=== PATIENT | female | born 1955 | race Caucasian/White ===

== ENCOUNTER → 2023-07-18 06:32 | Day surgery (SDC) | payer MEDICARE, SELFPAY | LOC: GI 06:32 | PROVIDERS: ATTENDING PHYSICIAN Internal Medicine Gastroenterology | DX: K31.A0 Gastric intestinal metaplasia, unspecified (principal); Z09 Encounter for follow-up examination after completed treatment for conditions other than malignant neoplasm | CPT/HCPCS: 43239; 88305; 88342 ==

== ENCOUNTER → 2023-11-20 08:01 | Outpatient (REF) | payer MEDICARE, SELFPAY | LOC: RAD 08:01 | PROVIDERS: ATTENDING PHYSICIAN Obstetrics & Gynecology Gynecology; FAMILY PHYSICIAN Physician Assistant | DX: M89.9 Disorder of bone, unspecified (principal); M85.88 Other specified disorders of bone density and structure, other site; Z12.31 Encounter for screening mammogram for malignant neoplasm of breast | CPT/HCPCS: 77063; 77067; 77080 ==

== ENCOUNTER → 2024-01-02 10:31 | Outpatient (REF) | payer MEDICARE, SELFPAY | LOC: RCS 10:31 | PROVIDERS: ATTENDING PHYSICIAN Physician Assistant | DX: R07.9 Chest pain, unspecified (principal); R73.01 Impaired fasting glucose; Z82.49 Family history of ischemic heart disease and other diseases of the circulatory system; Z82.3 Family history of stroke | CPT/HCPCS: 93017; 75571 ==

== ENCOUNTER → 2024-07-08 07:02 | Outpatient (REF) | payer MEDICARE, SELFPAY | LOC: MRI 3T 07:02 | PROVIDERS: ATTENDING PHYSICIAN Physician Assistant; FAMILY PHYSICIAN Physician Assistant | DX: M54.14 Radiculopathy, thoracic region (principal); R07.89 Other chest pain | CPT/HCPCS: 72146 ==

== ENCOUNTER → 2024-11-20 14:40 | Outpatient (REF) | payer MEDICARE, SELFPAY | LOC: HWRAD 14:40 | PROVIDERS: ATTENDING PHYSICIAN Internal Medicine Gastroenterology; FAMILY PHYSICIAN Physician Assistant | DX: R10.11 Right upper quadrant pain (principal) | CPT/HCPCS: 76700 ==

== ENCOUNTER → 2024-11-26 08:59 | Outpatient (REF) | payer MEDICARE, SELFPAY | LOC: WDC 08:59 | PROVIDERS: ATTENDING PHYSICIAN Obstetrics & Gynecology Gynecology | DX: Z12.31 Encounter for screening mammogram for malignant neoplasm of breast (principal) | CPT/HCPCS: 77063; 77067 ==

== ENCOUNTER 2025-01-28 18:41 | Emergency (ER) | payer MEDICARE, SELFPAY ==
[2025-01-28 18:44] VITALS: BP 162/78
[2025-01-28 19:11] LABS: Hematocrit 39.6 % (37.0-47.0); Hemoglobin 13.1 g/dL (12.0-16.0); Mean Corp Hgb Conc. 33.1 g/dL (33.0-37.0); Mean Corpuscular Volume 98.5 fL (81.0-99.0); Nucleated Red Blood Cells % 0 %; Platelet Count 235 10^3/uL (130-400); Red Cell Dist. Width 12.6 % (11.5-14.5)
[2025-01-28 19:23] LABS: INR 1.01; PT 13.6 Sec (11.4-14.6)
[2025-01-28 19:37] LABS: ALT (SGPT) 18 U/L (0-35); AST (SGOT) 21 U/L (14-36); Albumin 4.4 g/dl (3.5-5.0); Alkaline Phosphatase 58 U/L (38-126); Blood Urea Nitrogen 11 mg/dl (7-17); Calcium 9.4 mg/dl (8.4-10.2); Carbon Dioxide 31 mmol/L (22-30); Chloride 100 mmol/L (98-107); Glucose 95 mg/dl (70-99); Potassium 4.2 mmol/L (3.5-5.1); Sodium 136 mmol/L (135-145); Total Protein 6.8 g/dl (6.3-8.2); eGFR > 60.00
[2025-01-28 19:47] LABS: Troponin I < 0.012 ng/ml
[2025-01-28 22:14] VITALS: BP 138/68
[2025-01-28 22:15] VITALS: BMI 18.8
[2025-01-28 23:00] VITALS: BP 112/59
[2025-01-29] VITALS: BP 105/57
--- NOTE | 2025-01-29 01:02 | ED.GENMED ---
History of Present Illness
General
Chief Complaint: Chest Pain
Source: patient
Time Seen by Provider: 01/28/25 23:30
Nursing documentation reviewed up to this point in time: agreed with
History of Present Illness
History of Present Illness:
Note:
CHIEF COMPLAINT(S)
Chest discomfort and pain radiating to the back.
HISTORY OF PRESENT ILLNESS
The patient is a 69-year-old female with a history of recent travel from [facility] a week ago, presenting with complaints of chest discomfort. She describes the sensation as feeling 'like somethings stuck in my chest' and reports having sharp pains in
various areas of her chest, at times radiating to her back. These symptoms have persisted for a week without improvement. She reports excessive burping, particularly after consuming even small amounts such as a sip of water in the morning, but
denies that her pain is triggered by eating. The patient mentions using [id number]-isoqezu medications like Gas-X and antacids, but these have not alleviated her symptoms.
The patients GI provider advised a temporary increase in omeprazole and suggested considering the possibility of a pulmonary embolism (PE) or gallbladder issues and recommended seeking further evaluation including an electrocardiogram (EKG), which
the patient had this afternoon. There is a concern about the recent travel and a potential long drive ahead, raising concerns about a possible PE.
The patient denies associated symptoms such as calf tenderness, diarrhea, constipation, fever, chills, vomiting, and significant heart palpitations. She has experienced some headaches, which she attributes to stress. She reports no alcohol
consumption or intake of spicy foods. The family history includes heart issues in her grandparents, a brother with a heart attack at 47, and pancreatic cancer in her father.
FAMILY HISTORY
Family history of heart disease, with both grandparents affected. The patients brother had a heart attack at age 47. Her father from pancreatic cancer at age 50.
REVIEW OF SYSTEMS
- Gastrointestinal: Excessive burping, sensation of something stuck in the chest. No constipation or diarrhea.
- Cardiovascular: Sharp pains in the chest radiating to the back. No significant palpitations reported.
- Neurological: Headaches, potentially related to stress.
- General: No fever or chills.
PHYSICAL EXAM
General: Alert, no acute distress.
Skin: Warm, dry.
Head: Normocephalic, atraumatic.
Neck: Supple, trachea midline.
Eyes, Ears, Nose, Mouth, and Throat: Oral mucosa moist.
Cardiovascular: Normal peripheral perfusion, no edema.
Respiratory: Non-labored respirations.
Gastrointestinal: Abdomen nondistended.
Back: Normal range of motion, normal alignment.
Musculoskeletal: Normal range of motion, normal strength.
Neurological: Alert and oriented to person, place, time, and situation, no focal neurological deficit observed.
Psychiatric: Cooperative, appropriate mood and affect.
PLAN
- Consideration of testing for pulmonary embolism due to recent travel history and upcoming long drive.
- Further evaluation to rule out gallbladder pathology.
- Continued monitoring and assessment if symptoms do not improve.
DIFFERENTIAL DIAGNOSIS
The Differential Diagnosis includes, in no particular order and is not limited to:
1. Gastroesophageal reflux disease (GERD)
2. Gallbladder disease (e.g., cholecystitis)
3. Pulmonary embolism
4. Myocardial ischemia
5. Peptic ulcer disease
6. Esophageal spasm
7. Costochondritis
8. Anxiety-related disorders
9. Aortic dissection
10. Musculoskeletal pain
Disposition:
SUMMARY OF ENCOUNTER
The patient, a 69-year-old female, presented to the emergency department with chest discomfort and pain radiating to the back. She had recently traveled from [facility] and had concerns about a possible pulmonary embolism (PE) due to her travel history
and symptoms. A CTA (CT angiography) study was conducted to rule out PE, which returned negative. Laboratory workup included a normal lipase, and other labs were also essentially normal, with normal troponin levels tested twice. Given the normal
findings and absence of an acute life-threatening condition, the decision was made to discharge the patient.
DISPOSITION
Discharge
PLAN
The patient was advised to follow up with gastroenterology due to ongoing symptoms and possibly related GI issues.
INDEPENDENT REVIEW OF LABS AND INTERPRETATION OF TESTS
- My independent review of lipase is normal.
- My independent review of troponin is negative (x2).
INDEPENDENT REVIEW OF RADIOLOGY INTERPRETATION
- My independent CT angiography interpretation is negative for pulmonary embolism.
FOLLOW-UP INSTRUCTIONS
The patient is advised to follow up with gastroenterology.
MEDICATION RECONCILIATION
- Omeprazole, increased dose as previously advised by her GI provider.
MEDICAL DECISION MAKING
1. Number and Complexity of Problems Addressed: Chronic conditions affecting care include recent travel, chest discomfort, and possible GERD. Differential diagnosis considered includes gastroesophageal reflux disease (GERD), gallbladder disease,
pulmonary embolism, myocardial ischemia, peptic ulcer disease, esophageal spasm, costochondritis, anxiety-related disorders, aortic dissection, and musculoskeletal pain.
2. Data:
- Category 1: CT angiography and lab work were reviewed. Lipase and troponin levels were interpreted.
- Category 2: None indicated.
- Category 3: None indicated.
3. Risk:
- Consideration of Admission/Observation: Escalation of care including admission/observation was considered given the complexity and risk of the patients presenting complaint and underlying comorbidities. However, ultimately I feel the patient is
safe for outpatient management with close follow-up. Reasoning: Work-up reassuring, does not reveal any acute life/organ-threatening processes, patients symptoms well controlled upon reevaluation, reexamination is reassuring, vitals are stable,
patient agreeable with discharge, and reliable for follow-up.
DIAGNOSIS
1. Gastroesophageal reflux disease (GERD) - K21.9
2. Chest pain, unspecified - R07.9
Past History
Past History
ED Past Medical History: Hypercholesterolemia
ED Past Surgical History: Orthopedic
Phy Exam
Physical Exam
Physical Exam:
.
Scores
Heart Score for Chest Pain Patients
STEMI patient?: No
History: Slightly or Non-Suspicious
ECG: Normal
Age: >/= 65 years
Risk Factors: No Risk Factors
Troponin: </= Normal Limit
Heart Score for Chest Pain Patients: 2
Heart Score Risk: 2.5% MACE over next 6 weeks
Course
Orders/Labs/Results
Orders:
Orders
01/28/25 18:47
Electrocardiogram (*1) Urgent
Reason for Study: Chest Pain
EKG- Treatment ONCE
01/28/25 19:01
Complete Blood Count/With Diff Urgent
Comprehensive Metabolic Panel Urgent
Lipase Urgent
Comment: ADD ON
Prothrombin Time Urgent
Troponin I Urgent
01/29/25 00:42
CT Chest PE Study Urgent
Comment:
Reason For Exam: cp after long flight
01/29/25 00:43
Electrocardiogram (*1) Urgent
Reason for Study: Chest Pain
EKG- Treatment ONCE
01/29/25 00:45
EKG- Treatment ONCE
01/29/25 00:53
TSH Reflex To Free T4 Urgent
Troponin I Urgent
01/29/25 01:01
Add On- LAB Urgent
Tests Added?: lipase
Abnormal Lab Results
01/28/25
19:01
RBC 4.02 L 10^6/uL
(4.20-5.40)
MCH 32.6 H pg
(27.0-31.0)
Carbon Dioxide 31 H mmol/L
(22-30)
01/28/25 19:01
01/28/25 19:01
Vital Signs
Initial and Last Documented VS:
Initial Vital Signs
Temp Pulse Resp BP Pulse Ox
98.2 F 89 16 162/78 99
01/28/25 18:44 01/28/25 18:44 01/28/25 18:44 01/28/25 18:44 01/28/25 18:44
Last Documented Vital Signs
Temp Pulse Resp BP Pulse Ox
98.2 F 66 9 127/84 100
01/28/25 18:44 01/29/25 04:00 01/29/25 04:00 01/29/25 04:00 01/29/25 04:00
*Radiology
Radiology exam reviewed: radiology read reviewed
*Pulse Oximetry
SaO2: 97
Oxygen Mode of Delivery: Room air
Patient hypoxic: no
*Critical Care Note
Total Time (30-74mins, 75-104mins- exclusive of procedures): Not Applicable
ED Attending Note
-
Portions of this chart may have been created with voice recognition software.� Occasional wrong word or��sound alike� substitutions may have occurred due to the inherent limitations of voice recognition software.
Discharge Plan
Departure
Patient Disposition: Home (Routine Discharge)
Date of Disposition: 01/29/25
Time of Disposition: 04:00
Patient with high blood pressure during this ER visit?: Yes
Condition: Good
Discharge Problem:
Chest pain
Instructions: Chest Pain PCP Follow Up, BLOOD PRESSURE
Prescriptions:
No Action
rosuvastatin 10 mg Tablet
10 mg PO QPM
alprazolam 0.25 mg Tablet
0.25 mg PO BIDPRN PRN (Reason: panic attacks)
calcium carbonate [Calcium 500] 500 mg calcium (1,250 mg) Tablet
500 mg PO DAILY
ibuprofen 200 mg Tablet
400 mg PO Q6HPRN PRN (Reason: mild pain)
cholecalciferol (vitamin D3) [Vitamin D3] 25 mcg (1,000 unit) Tablet
25 mcg PO DAILY
sucralfate [Carafate] 100 mg/mL suspension
10 ml PO QID Qty: 400 0RF
pantoprazole [Protonix] 40 mg tablet,delayed release (DR/EC)
40 mg PO DAILY Qty: 30 0RF
Rx Instructions:
Please take 30 minutes prior to eating or drinking anything in the morning.
Referrals:
Yaritza Pak DO [Family Provider, Family Practice]
Activity Restrictions/Additional Instructions:
Please follow-up with gastroenterology, as discussed
Thank You for choosing [facility].
It was a pleasure meeting you and taking part in your care. We hope for your continued healing and wellness.
Please read discharge instructions in their entirety. However, they are for general education and may not describe your exact diagnosis at discharge. Information on your ER visit and medical conditions were discussed with you along with appropriate
follow up information...
If indicated, please take your medications as instructed and indicated on discharge paperwork.
Please schedule a follow up appointment as directed. Call to schedule an appointment
Please return to the emergency department with ANY change in, persisting, or worsening of symptoms. If any of your symptoms do not improve, or persist, or become more severe within 6-12 hours, please return to the emergency department for further
care.
Please return to the emergency department if you develop a headache, neck pain/stiffness, fever greater than 100.4F, chest pain, shortness of breath, persistent nausea, vomiting, slurred speech, difficulty walking, numbness/tingling, weakness, signs
of infection or any other symptoms that are worrisome to you.
If you have any questions or concerns please do not hesitate to call the Hospital at .
Interventions
Interventions:
*Risk Screen - Suicide Last Done: 01/28/25 18:44
*General Assessment Last Done: 01/28/25 22:15
*Neglect/Abuse Screening Last Done: 01/28/25 18:44
*ED- Fall Risk Assessment Last Done: 01/28/25 22:15
*ED COVID-19 Vaccine History Last Done: 01/28/25 22:15
*ED Influenza Vaccine History Last Done: 01/28/25 22:15
*Nursing Disposition Last Done: 01/29/25 04:13
ED- Cardiac Assessment Last Done: 01/28/25 22:15
Discharge Date and Time
Discharge Date/Time: 01/29/25 04:13
Print Language: TELUGU
[2025-01-29 02:16] LABS: Troponin I < 0.012 ng/ml
[2025-01-29 02:22] VITALS: BP 119/67
--- NOTE | 2025-01-29 02:57 | DOWNTIME ---
There was a [employer] Downtime on 01/29/2025 from 0100 to 01/29/2025 at 0255. Downtime documentation of patient's care, including medication administrations, has been reconciled in the electronic record per guidelines. Refer to the
patient's paper chart under the miscellaneous tab to see printed paper medication records and downtime forms.
[2025-01-29 03:00] VITALS: BP 116/67
[2025-01-29 03:08] LABS: Lipase 125 U/L (23-300)
[2025-01-29 04:00] VITALS: BP 127/84
== END 2025-01-29 04:13 | disposition home or self-care (01) ==
LOC: EMR 18:41
PROVIDERS: Student in an Organized Health Care Education/Training Program; EMERGENCY PHYSICIAN Student in an Organized Health Care Education/Training Program; FAMILY PHYSICIAN Family Medicine
DX: R07.89 Other chest pain (principal); K21.9 Gastro-esophageal reflux disease without esophagitis; E78.00 Pure hypercholesterolemia, unspecified; Z82.49 Family history of ischemic heart disease and other diseases of the circulatory system
CPT/HCPCS: 99284; 71275; 80053; 83690; 84443; 84484; 85025; 85610; 93005; Q9967